=== PATIENT | female | born 1995 | race Caucasian/White ===

== ENCOUNTER 2018-07-25 15:11 | Emergency (ER) | payer BC ==
[~2018-07-25] VITALS: Wt 56.8 kg
[2018-07-25] MEDS ORDERED: ONDANSETRON 4 MG INJ IV STA (15:15)
[2018-07-25] MEDS ORDERED: HYDROmorphONE 1 MG/ML SYG IV STA (15:15)
[2018-07-25] MEDS ORDERED: PROPOFOL 200 MG INJ IV STA (17:04)
[2018-07-25] MEDS ORDERED: IBUP-1542 PO (17:49)
[2018-07-25 18:35] VITALS: BP 122/89; PULSE 85; RESP 18
--- NOTE | 2018-07-25 19:00 | ERD ---
ER Documentation Chief Complaint Chief Complaint R KNEE PAIN/DEF FROM A FALL WHILE DOING GYMNASTICS. GOOD DISTAL PULSES. HPI Patient is a 23-year-old female with no medical problems who presents with a right knee injury. She was dancing just prior to arrival and fell and noticed that her right knee was deformed. She was brought in by ambulance. She has severe and sharp pain that is worse with movement. She has had no treatment as of yet. ROS All systems reviewed and are negative except as per history of present illness. Medications Home Meds Active Scripts Ibuprofen* (Motrin*) 600 Mg Tab, 600 MG PO Q6H PRN for PAIN AND OR ELEVATED TEM P, #30 TAB Prov:OBDULIO TAVAREZ MD 07/25/18 Allergies Allergies: Coded Allergies: No Known Allergy (Unverified , 07/25/18) PMhx/Soc Medical and Surgical Hx: pt denies Medical Hx, pt denies Surgical Hx Hx Alcohol Use: No Hx Substance Use: No Hx Tobacco Use: No Smoking Status: Never smoker FmHx Family History: No diabetes Physical Exam Vitals Vital Signs Date Temp Pulse Resp B/P (MAP) Pulse Ox O2 O2 Flow FiO2 Time Delivery Rate 07/25/18 98.4 85 18 122/89 100 Room Air 18:35 (100) 07/25/18 98.4 86 18 110/73 100 Room Air 17:37 (85) 07/25/18 98.4 80 20 95/58 (70) 100 Room Air 15:35 07/25/18 98.4 110 20 95/58 (70) 100 15:16 Physical Exam Const: Moderate distress Head: Atraumatic Eyes: Normal Conjunctiva ENT: Normal External Ears, Nose and Mouth. Neck: Full range of motion. No meningismus. Resp: Clear to auscultation bilaterally Cardio: Regular rate and rhythm, no murmurs Abd: Soft, non tender, non distended. Normal bowel sounds Skin: No petechiae or rashes Back: No midline or flank tenderness Ext: Lateral patellar dislocation to the right knee Neur: Awake and alert Psych: Normal Mood and Affect Results 24 hrs Laboratory Tests Test 07/25/18 15:41 POC Beta HCG, Qualitative NEGATIVE Current Medications Medications Dose Sig/[place] Start Time Status Last (Trade) Ordered Route PRN Stop Time Admin Dose Reason Admin 1 mg ONCE STAT 07/25/18 DC 07/25/18 Hydromorphone IV 15:15 15:46 HCl 07/25/18 15:17 (Dilaudid) Ondansetron 4 mg ONCE STAT 07/25/18 DC 07/25/18 HCl (Zofran IV 15:15 15:46 Inj) 07/25/18 15:17 Propofol 200 mg ONCE STAT 07/25/18 DC 07/25/18 (Diprivan) IV 17:04 17:37 07/25/18 17:05 Procedures/MDM X-ray knee 3V Interpreted by me: Bones: No fracture Joints: Lateral dislocation of the right patella Foreign body: None Procedural Sedation: Pre-assessment performed. See preceding complete history and physical for details. Time out performed. See sedation documentation for details. Medication(s): Propofol 100 mg IV Complications: No hypoxic or apneic events Recovered without incident. Greater than 15 minutes of face to face time included in sedation and recovery. ASA class II Splint Assessment: Neurovascularly intact post splint placement with good fit. Patient's extremity symptoms have stabilized while they have been evaluated in the department and are appropriate for outpatient follow up. No evidence of compartment syndrome, neurologic injury, vascular injury, open joint, open fracture, tendon laceration, or foreign body. Reduction by me: Anesthesia: Propofol IV Location: Right patella Technique: Medial pressure Results: Zoroastrian of normal anatomic positioning Compl: Neurovascularly intact post procedure. Post-reduction X-ray knee 3V Interpreted by me: Bones: No fracture Joints: Relocation of previously noted dislocation Foreign body: None Departure Diagnosis: Primary Impression: Patellar dislocation Encounter type: initial encounter Laterality: right Qualified Codes: S83.004A - Unspecified dislocation of right patella, initial encounter Condition: Fair Patient Instructions: Patellar Dislocation / Subluxation Referrals: RO CAVAZOS MD Additional Instructions: SPECIALIST: YOU HAVE A MEDICAL CONDITION WHICH REQUIRES YOU TO SEE A SPECIALIST WITHIN THE NEXT 1-2 DAYS. PLEASE FOLLOW UP WITH YOUR PRIMARY PHYSICIAN FOR REFFERAL.IF YOU DO NOT HAVE A PRIMARY CARE PHYSICIAN AND/OR YOU CAN NOT AFFORD TO SEE A PHYSICIAN THE FOLLOWING RESOURCES HAVE BEEN SUPPLIED TO YOU. IT IS YOUR RESPONSIBILITY TO BE SEEN BY THE SPECIALIST OBDULIO TAVAREZ MD Jul 25, 2018 19:00
== END 2018-07-25 18:37 | disposition home or self-care (01) ==
LOC: E/R 15:11
DX: S83.014A Lateral dislocation of right patella, initial encounter (principal); W18.39XA Other fall on same level, initial encounter; Y92.9 Unspecified place or not applicable
CPT/HCPCS: 27560; 73562; 81025; 96374; 96375; 99285; J1170; J2405